=== PATIENT | female | born 1940 | race Caucasian/White ===

== ENCOUNTER 2019-08-18 09:05 | Outpatient (REF) | payer MEDICARE, OTHER, SELFPAY ==
[2019-08-18 12:27] LABS: Estmated Average Glucose 123; Hemoglobin A1C 5.9 % (4.0-6.0)
[2019-08-18 12:31] LABS: Chol HDL Ratio 3.53 mg/dL (0.0-4.40); Cholesterol 166 mg/dL (0-200); Glucose 101 mg/dL (65-115); HDL Cholesterol 47 mg/dL (60-100); LDL Cholesterol Calculated 102 mg/dL (50-129); LDL HDL Ratio 2.17 RATIO (0.00-3.22); Triglycerides 85 mg/dL (0-150)
== END 2019-08-18 09:06 | disposition home or self-care (01) ==
LOC: LAB 09:05
PROVIDERS: Family Provider Family Medicine; Visit Provider Dermatology
DX: Z01.89 Encounter for other specified special examinations (principal)
CPT/HCPCS: 80061; 82947; 83036

== ENCOUNTER 2021-01-24 08:25 | Outpatient (CLI) | payer MEDICARE, OTHER, SELFPAY ==
[2021-01-24] MEDS: iohexol 300 mg/mL 50 mL Btl PO (08:58)
--- NOTE | 2021-01-24 10:00 | CT_ITS ---
WS: [id number] CT scan of the abdomen and pelvis with Oral and IV contrast. Additional two-dimensional coronal and s agittal reconstruction was performed. 01/24/2021 Clinical Data: R16.0 - Hepatomegaly, not elsewhere classified Comparison: None. DLP: 1051.[address] scans at [facility] use at least one of these dose optimization techniques: automat ed exposure control; mA and/or kV adjustment per patient size (includes targeted exams where dose is matched to clinical indication); or iterative reconstruction. Findings: There is an 11 cm low-density lesion in the right lobe of the liver. The border is irregular and the interior of the lesion shows nodules and probably enhancing tissue. A posterior left lobe 1.1 cm low- density lesion which may or may not be associated with a larger central lesion is seen. There is dimi nished perfusion in the posterior aspect of the right lobe of liver. There is a small right pleural effusion. The lower lungs show no nodules or masses. The gallbladder is distended but there is no pericholecystic fluid. There is a 1.7 cm low-density les ion in the tail the pancreas which probably is a simple cyst. No pancreatic masses are seen. The adre nal glands are normal. The spleen shows enhancement but there is a low density 0.8 cm lesion in the b melva of the spleen. The kidneys show equal bilateral contrast excretion with a 1.1 cm right renal calcification. There ar e small bilateral renal cysts. No hydronephrosis or renal mass is noted. The abdominal aorta is normal in size with calcification in the wall. No appendicitis or diverticulitis is seen. Numerous diverticula in the descending colon and sigmoid c olon are present. There is a large amount of fecal material. Oral contrast is in the stomach and smal l bowel and there is no bowel dilatation. No ascites, adenopathy, obstruction or free air is seen. The bladder is unremarkable. The uterus shows numerous calcifications. No inguinal hernia is seen. The bones of the lower thorax, lumbar spine, pelvis, and hips show no metastatic lesions. 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 CT/CT abdomen pelvis w con* [id number] Impression: 1. Large lesion in right lobe of the liver with the appearance of an abscess. L ess likely possibilities are metastatic disease and primary liver cancer. 2. Diminished perfusion in the posterior aspect of right lobe of the liver. 3. Probable cysts in the tail of the pancreas and body of the spleen. 4. Right pleural effusion. 5. Right renal calculus.
[2021-01-24] MEDS: iohexol 300 mg/mL 100 mL Btl IV (10:09)
== END 2021-01-24 08:26 | disposition home or self-care (01) ==
PROVIDERS: PCP Family Medicine; Visit Provider Surgery
DX: R16.0 Hepatomegaly, not elsewhere classified (principal); N20.0 Calculus of kidney; J90 Pleural effusion, not elsewhere classified; K76.9 Liver disease, unspecified
CPT/HCPCS: 74177; Q9967

== ENCOUNTER 2021-01-27 09:47 | Outpatient (CLI) | payer MEDICARE, OTHER, SELFPAY ==
[2021-01-27 10:30] LABS: Basophils # 0.1 10^3/uL (0.0-0.1); Basophils % 0.8 %; Eosinophils # 0.1 10^3/uL (0.0-0.8); Hematocrit 38.3 % (37.0-47.0); Hemoglobin 12.1 g/dL (11.5-15.3); Lymphocytes % 9.3 %; Mean Corpuscular HGB Conc 31.6 g/dL (30.0-36.0); Mean Corpuscular Hemoglobin 27.9 pg (28.0-34.0); Mean Corpuscular Volume 88.5 fL (81-99); Mean Platelet Volume 9.3 fL (7.4-10.4); Monocytes % 8.6 %; Neutrophils # 8.83 10^3/uL (1.8-7.7); Neutrophils % 79.9 %; Nucleated Red Blood Cells % 0 %; Platelet Count 350 10^3/cmm (130-400); Red Blood Count 4.33 10^6/uL (4.1-5.3); Red Cell Distribution Width 15.1 % (12.1-15.1); White Blood Count 11.1 10^3/uL (4.0-10.0)
[2021-01-27 11:06] LABS: Alanine Aminotransferase 27 U/L (0-33); Albumin Level 3.4 g/dL (3.5-5.2); Alkaline Phosphatase 427 IU/L (35-105); Anion Gap 12.4 (5-19); Aspartate Amino Transferase 50 U/L (0-32); Blood Urea Nitrogen 18 mg/dL (8-23); Calcium 9.3 mg/dL (8.5-10.5); Carbon Dioxide 25 mmol/L (22-29); Chloride 101 mmol/L (98-107); Globulin 2.9 g/dL (1.3-4.6); Glucose 101 mg/dL (65-115); Lipase 62 U/L (13-60); Osmolality Calculated 280 mOsm/kg (285-295); Potassium 4.4 mmol/L (3.5-5.1); Sodium 134 mmol/L (136-145); Total Bilirubin 0.3 mg/dL (0.15-1.2); Total Protein 6.3 g/dL (6.6-8.7)
[2021-01-27 11:09] LABS: Blood Urea Nitrogen 18 mg/dL (8-23)
== END 2021-01-27 09:48 | disposition home or self-care (01) ==
PROVIDERS: PCP Family Medicine; Visit Provider Surgery
DX: R16.0 Hepatomegaly, not elsewhere classified (principal)
CPT/HCPCS: 36415; 80053; 83690; 84520; 85025

== ENCOUNTER 2021-02-07 21:57 | Emergency (ER) | payer MEDICARE, OTHER, SELFPAY ==
[2021-02-07 22:07] VITALS: BP 162/83; PULSE 99; RESP 18; TEMP 37.2; O2SAT 95; BMI 20.9
[2021-02-08] VITALS (17 sets, daily range): BP systolic 124–171; BP diastolic 59–79; PULSE 71–92; RESP 17–19; TEMP 28.3–36.8; O2SAT 94–97
[2021-02-08 03:34] LABS: Basophils # 0.1 10^3/uL (0.0-0.1); Basophils % 0.8 %; Hematocrit 39.3 % (37.0-47.0); Hemoglobin 12.6 g/dL (11.5-15.3); Lymphocytes # 0.7 10^3/uL (0.8-4.8); Lymphocytes % 5.4 %; Mean Corpuscular HGB Conc 32.1 g/dL (30.0-36.0); Mean Corpuscular Hemoglobin 28.4 pg (28.0-34.0); Mean Corpuscular Volume 88.7 fL (81-99); Mean Platelet Volume 9.6 fL (7.4-10.4); Monocytes # 0.8 10^3/uL (0.2-0.9); Monocytes % 6.7 %; Neutrophils # 10.45 10^3/uL (1.8-7.7); Neutrophils % 86.9 %; Nucleated Red Blood Cells % 0 %; Platelet Count 375 10^3/cmm (130-400); Red Blood Count 4.43 10^6/uL (4.1-5.3); Red Cell Distribution Width 15.3 % (12.1-15.1)
[2021-02-08 03:51] LABS: Alanine Aminotransferase 40 U/L (0-33); Albumin Level 3.4 g/dL (3.5-5.2); Alkaline Phosphatase 552 IU/L (35-105); Aspartate Amino Transferase 63 U/L (0-32); Blood Urea Nitrogen 19 mg/dL (8-23); Calcium 9.5 mg/dL (8.5-10.5); Carbon Dioxide 26 mmol/L (22-29); Chloride 97 mmol/L (98-107); Creatinine Clr Calc Pharmacy 53.2604; Globulin 3.2 g/dL (1.3-4.6); Glucose 112 mg/dL (65-115); Lipase 38 U/L (13-60); Osmolality Calculated 279 mOsm/kg (285-295); Sodium 133 mmol/L (136-145); Total Bilirubin 0.4 mg/dL (0.15-1.2); Total Protein 6.6 g/dL (6.6-8.7)
[2021-02-08 03:57] LABS: Anion Gap 14.8 (5-19); Potassium 4.8 mmol/L (3.5-5.1)
[2021-02-08] MEDS: ondansetron 2 mg/ML SDV 2 mL 4 MG IVP ×3 (05:58→18:03)
[2021-02-08] MEDS: fentaNYL 50 mcg/mL INJ 2mL IVP ×2 (05:58→10:45)
[2021-02-08] MEDS: sodium chloride 0.9% 1,000 ML 999 ML IV (05:59)
--- NOTE | 2021-02-08 06:22 | CTR_ITS ---
PROCEDURE INFORMATION: Exam: CT Abdomen And Pelvis With Contrast Exam date and time: 02/08/2021 6:22 AM Age: 80 years old Clinical indication: Nausea and vomiting; Abdominal pain; Generalized; Patient HX: Abd pain with n/v. Known hepatic mass/abscess. ; Additional info: Ruq pain TECHNIQUE: Imaging protocol: Computed tomography of the abdomen and pelvis with contrast. Total images: 223 Radiation optimization: All CT scans at this facility use at least one of these dose optimization techniques: automated exposure control; mA and/or kV adjustment per patient size (includes targeted exams where dose is matched to clinical indication); or iterative reconstruction. Contrast material: OMNI 300; Contrast volume: 75 ml; Contrast route: INTRAVENOUS (IV); COMPARISON: CT abdomen pelvis w con* [id number] 01/24/2021 10:01 AM RADIATION DOSE METRICS: Total DLP (mGy-cm): 1103.24 FINDINGS: Lungs: Compressive atelectasis of the right lung base. Pleural spaces: Moderate right pleural effusion. Liver: Large irregular area of low density with wall enhancement seen within the right lobe of the liver with smaller adjacent areas with similar appearance felt to represent a large hepatic abscess. Findings appear similar to the prior exam. 12 mm low-density area in the left lobe of the liver is unchanged. This is of indeterminate attenuation and shows no enhancement of the wall. This may represent a liver cyst or perhaps an additional site of hepatic abscess. This is unchanged from the prior exam. Gallbladder and bile ducts: Normal. No calcified stones. No ductal dilation. Pancreas: 17 mm pancreatic cyst in the posterior body. Atrophic changes of the pancreatic tail without pancreatic ductal dilatation detected. Spleen: Incidental splenic granuloma. Multiple low-density areas within the spleen which may represent splenic cysts. 12 mm area of low density within the spleen is indeterminate and may represent a splenic cyst or abscess. This is unchanged from the prior exam. Adrenal glands: Normal. No mass. Kidneys and ureters: 11 mm renal calcification with parenchymal thinning felt to represent sequela of prior inflammatory disease versus renal calculus unchanged. Small bilateral renal cysts unchanged. Stomach and bowel: Prominent fluid in small bowel suggestive of infectious/inflammatory enteritis or ileus. Colonic diverticulosis is present without diverticulitis. Appendix: No evidence of appendicitis. Intraperitoneal space: A small volume of intra-abdominal ascites is present. Vasculature: Severe atherosclerotic disease is evident. Lymph nodes: Unremarkable. No enlarged lymph nodes. Urinary bladder: Unremarkable as visualized. Reproductive: Unremarkable as visualized. Bones/joints: Multilevel degenerative disc disease is noted with vacuum phenomenon. Osteophytes are noted extending from the vertebrae. No acute spinal pathology is detected. Vertebral body with thickened, sparse vertical trabecula consistent with a vertebral body hemangioma. Soft tissues: Unremarkable. CT/CT abdomen pelvis w con* [id number] IMPRESSION: 1. Moderate right pleural effusion with compressive atelectasis. This has increased since the prior exam. 2. Large irregular area of low density with wall enhancement seen within the right lobe of the liver with smaller adjacent areas with similar appearance felt to represent a large hepatic abscess. Findings appear similar to the prior exam. 3. 12 mm low-density area in the left lobe of the liver is unchanged. This is of indeterminate attenuation and shows no enhancement of the wall. This may represent a liver cyst or perhaps an additional site of hepatic abscess. This is unchanged from the prior exam. 4. Multiple low-density areas within the spleen which may represent splenic cysts. 12 mm area of low density within the spleen is indeterminate and may represent a splenic cyst or abscess. This is unchanged from the prior exam. 5. 17 mm pancreatic cyst in the posterior body. Atrophic changes of the pancreatic tail without pancreatic ductal dilatation detected. Nonemergent MRI without and with IV contrast can be considered to further define. 6. Prominent fluid in small bowel suggestive of infectious/inflammatory enteritis or ileus. 7. A small volume of intra-abdominal ascites is present. Radiation Dose CTDIVOL = (mGy): DLP = 1103.24 (mGy-cm)
--- NOTE | 2021-02-08 06:55 | W.ED.ABDPA2 ---
Documented by User: Prudencio Altamirano DO 02/08/21 18:50 HPI - Abdominal Pain General: Chief Complaint: Abdominal Pain Stated Complaint: n,v,abd pain Time Seen by Provider: 02/08/21 04:30 History of Present Illness: HPI narrative: 80-year-old female with a history of right upper quadrant pain, she says since August. She saw her PCP recently and ultrasound of the gallbladder was ordered. She saw surgeon, who believed she had biliary colic, but got a CT scan to make sure 2 weeks ago. She continues to have pain, and significant amount of vomiting, with inability to keep fluids down for the past 24 hours or so. She presents for evaluation and treatment. MD elicited complaint: abdominal pain Pertinent past history: other Onset (ago): week(s) Pain Consistency: constant Location: RUQ Severity: moderate Quality: cramping and stabbing Radiation: RUQ Migration to: no migration Exacerbating factors: eating Relieving factors: nothing Associated Symptoms: Reports anorexia, diarrhea, nausea, poor appetite and vomiting; Denies fever(s), hematochezia and hematemesis Review of Systems Const: Denies: fever(s) Card: Denies: chest pain or palpitations Resp: Denies: dyspnea GI: Reports: nausea, vomiting and diarrhea; Denies: hematemesis or hematochezia PFS ED PFSH: Medical History (Updated 02/08/21 @ 18:50 by Prudencio Altamirano DO) Carotid stenosis Mitral and aortic incompetence SVT (supraventricular tachycardia) Surgical History (Updated 01/20/21 @ 15:19 by Liu Dumont MD) History of colonoscopy History of rotator cuff surgery (~2010) left Social History (Updated 12/15/19 @ 09:30 by Liberty Mittal RN) Smoking and tobacco status: never smoked Alcohol intake: never Physical Exam Chest: COMMONS NORMALS: normal inspection of the chest Resp: COMMON NORMALS: normal respiratory effort, No use of accessory muscles and clear to auscultation bilaterally AUSCULTATION: clear to auscultation bilaterally Cardio: COMMON NORMALS: regular rate and regular rhythm RATE: regular rate RHYTHM: regular rhythm GI: COMMON NORMALS: Normal to inspection, nondistended, normoactive bowel sounds present and Soft to palpation PALPATION: Yes Soft to palpation, Yes Tenderness to palpation present (GI) Details: RUQ and Yes Guarding due to palpation present (GI) Course Vital Signs: Vital signs: Vital Signs Temperature 98.2 F 02/08/21 16:00 Pulse Rate 86 02/08/21 18:45 Respiratory Rate 18 02/08/21 18:45 Blood Pressure 140/64 02/08/21 18:45 Pulse Oximetry 95 02/08/21 18:45 MDM - Abdominal Pain MDM Narrative: Medical decision making narrative: Review of CT 2 weeks ago, this lady has a fluid-filled mass in her liver. ReCT today to further delineate, and see if it has changed or grown. She may need transfer to IR for sampling, as we do not have that availability here. Her care is transferred to Dr. Herman at shift change. Patient leaving the ER now. She has a bed at [facility] in transfer. She is remained stable. She is received Zosyn, IV fluids, and pain medication here and there. Lab Data: Labs: Lab Results 02/08/21 02/08/21 02/08/21 Range/Units 03:25 03:25 09:03 WBC 12.0 H (4.0-10.0) 10^3/ uL RBC 4.43 (4.1-5.3) 10^6/u L Hgb 12.6 (11.5-15.3) g/dL Hct 39.3 (37.0-47.0) % MCV 88.7 (81-99) fL MCH 28.4 (28.0-34.0) pg MCHC 32.1 (30.0-36.0) g/dL RDW 15.3 H (12.1-15.1) % Plt Count 375 (130-400) 10^3/c mm MPV 9.6 (7.4-10.4) fL Neut % (Auto) 86.9 % Lymph % (Auto) 5.4 % [place] % (Auto) 6.7 % Eos % (Auto) 0.0 % Baso % (Auto) 0.8 % Neut # (Auto) 10.45 H (1.8-7.7) 10^3/u L Lymph # (Auto) 0.7 L (0.8-4.8) 10^3/u L [place] # (Auto) 0.8 (0.2-0.9) 10^3/u L Eos # (Auto) 0.0 (0.0-0.8) 10^3/u L Baso # (Auto) 0.1 (0.0-0.1) 10^3/u L Nucleated RBC % (a uto) 0 % Nucleated RBCs # 0.0 /100WBC Sodium 133 L (136-145) mmol/L Potassium 4.8 (3.5-5.1) mmol/L Chloride 97 L (98-107) mmol/L Carbon Dioxide 26 (22-29) mmol/L Anion Gap 14.8 (5-19) BUN 19 (8-23) mg/dL Creatinine 0.4 L (0.5-0.9) mg/dL GFR Calculation Not Reportable Glucose 112 (65-115) mg/dL Calculated Osmolal ity 279 L (285-295) mOsm/k g Calcium 9.5 (8.5-10.5) mg/dL Total Bilirubin 0.4 (0.15-1.2) mg/dL AST 63 H (0-32) U/L ALT 40 H (0-33) U/L Alkaline Phosphata se 552 H (35-105) IU/L Total Protein 6.6 (6.6-8.7) g/dL Albumin 3.4 L (3.5-5.2) g/dL Globulin 3.2 (1.3-4.6) g/dL Lipase 38 (13-60) U/L Urine Color Yellow (Yellow) Urine Appearance Clear (CLEAR) Urine pH 6.5 (5-7) Ur Specific Gravit y 1.010 (1.005-1.030) Urine Protein Trace (Negative) Urine Glucose (UA) Norm (Normal) Urine Ketones Negative (Negative) Urine Blood Neg (Negative) Urine Nitrate Negative (Negative) Urine Bilirubin Neg (Negative) Urine Urobilinogen 1 H (Negative) mg/dL Ur Leukocyte Estephanie ase Negative (Negative) Urine RBC None (0-2) /hpf Urine WBC None (0-5) /hpf Ur Squamous Epith Cells 0-4 H (0-5) /hpf Amorphous Sediment Not Reportable Urine Bacteria Trace (NONE) /hpf Hyaline Casts Rare /lpf Urine Mucus Trace /hpf Discharge Plan Discharge Patient Disposition: Xfer Short-Term Hosp Clinical Impression: Abscess of liver Condition: Stable Referrals: Lata Villanueva DO [Primary Care Provider] - Sign Out Sign Out Data: Patient Sign Out occurred on 02/08/21 at 11:46. Patient's care was discussed, and care was transferred from to John Herman DO. Coding Level of Care Code ED Refractory Tile Helper for Chg Fwd Exam Expanded Problem Focused Documented by User: John Herman DO 02/09/21 17:59 HPI - Abdominal Pain General: Chief Complaint: Abdominal Pain Stated Complaint: n,v,abd pain Time Seen by Provider: 02/08/21 04:30 PFSH ED PFSH: Medical History (Updated 02/08/21 @ 18:50 by Prudencio Altamirano DO) Carotid stenosis Mitral and aortic incompetence SVT (supraventricular tachycardia) Surgical History (Updated 01/20/21 @ 15:19 by Liu Dumont MD) History of colonoscopy History of rotator cuff surgery (~2010) left Social History (Updated 12/15/19 @ 09:30 by Liberty Mittal RN) Smoking and tobacco status: never smoked Alcohol intake: never Course Vital Signs: Vital signs: Vital Signs Temperature 98.2 F 02/08/21 16:00 Pulse Rate 86 02/08/21 18:45 Respiratory Rate 18 02/08/21 18:45 Blood Pressure 140/64 02/08/21 18:45 Pulse Oximetry 95 02/08/21 18:45 MDM - Abdominal Pain MDM Narrative: Medical decision making narrative: Care assumed a change of shift. Patient was monitored in the ER continued on her medications pain medications given as needed ultimately we are able to get a bed at [place] accepted on transfer the hepatology service discussed with the hepatology fellow. They accepted transfer via [facility] patient is doing well. Patient transferred because needed services are not available at our hospital including gastroenterology and interventional radiology for drainage of liver abscess. Lab Data: Labs: Lab Results 02/08/21 02/08/21 02/08/21 Range/Units 03:25 03:25 09:03 WBC 12.0 H (4.0-10.0) 10^3/ uL RBC 4.43 (4.1-5.3) 10^6/u L Hgb 12.6 (11.5-15.3) g/dL Hct 39.3 (37.0-47.0) % MCV 88.7 (81-99) fL MCH 28.4 (28.0-34.0) pg MCHC 32.1 (30.0-36.0) g/dL RDW 15.3 H (12.1-15.1) % Plt Count 375 (130-400) 10^3/c mm MPV 9.6 (7.4-10.4) fL Neut % (Auto) 86.9 % Lymph % (Auto) 5.4 % [place] % (Auto) 6.7 % Eos % (Auto) 0.0 % Baso % (Auto) 0.8 % Neut # (Auto) 10.45 H (1.8-7.7) 10^3/u L Lymph # (Auto) 0.7 L (0.8-4.8) 10^3/u L [place] # (Auto) 0.8 (0.2-0.9) 10^3/u L Eos # (Auto) 0.0 (0.0-0.8) 10^3/u L Baso # (Auto) 0.1 (0.0-0.1) 10^3/u L Nucleated RBC % (a uto) 0 % Nucleated RBCs # 0.0 /100WBC Sodium 133 L (136-145) mmol/L Potassium 4.8 (3.5-5.1) mmol/L Chloride 97 L (98-107) mmol/L Carbon Dioxide 26 (22-29) mmol/L Anion Gap 14.8 (5-19) BUN 19 (8-23) mg/dL Creatinine 0.4 L (0.5-0.9) mg/dL GFR Calculation Not Reportable Glucose 112 (65-115) mg/dL Calculated Osmolal ity 279 L (285-295) mOsm/k g Calcium 9.5 (8.5-10.5) mg/dL Total Bilirubin 0.4 (0.15-1.2) mg/dL AST 63 H (0-32) U/L ALT 40 H (0-33) U/L Alkaline Phosphata se 552 H (35-105) IU/L Total Protein 6.6 (6.6-8.7) g/dL Albumin 3.4 L (3.5-5.2) g/dL Globulin 3.2 (1.3-4.6) g/dL Lipase 38 (13-60) U/L Urine Color Yellow (Yellow) Urine Appearance Clear (CLEAR) Urine pH 6.5 (5-7) Ur Specific Gravit y 1.010 (1.005-1.030) Urine Protein Trace (Negative) Urine Glucose (UA) Norm (Normal) Urine Ketones Negative (Negative) Urine Blood Neg (Negative) Urine Nitrate Negative (Negative) Urine Bilirubin Neg (Negative) Urine Urobilinogen 1 H (Negative) mg/dL Ur Leukocyte Estephanie ase Negative (Negative) Urine RBC None (0-2) /hpf Urine WBC None (0-5) /hpf Ur Squamous Epith Cells 0-4 H (0-5) /hpf Amorphous Sediment Not Reportable Urine Bacteria Trace (NONE) /hpf Hyaline Casts Rare /lpf Urine Mucus Trace /hpf Discharge Plan Discharge Patient Disposition: Xfer Short-Term Hosp Clinical Impression: Abscess of liver Condition: Stable Referrals: Lata Villanueva DO [Primary Care Provider] - Sign Out Sign Out Data: Patient Sign Out occurred on 02/08/21 at 11:46. Patient's care was discussed, and care was transferred from to John Herman DO. Coding Level of Care Code ED Refractory Tile Helper for Chg Fwd Exam Expanded Problem Focused
[2021-02-08] MEDS: iohexol 300 mg/mL 100 mL Btl IV (06:56)
[2021-02-08 10:07] LABS: Glucose Urine UA Norm (Normal); Protein Urine Trace (Negative); Urine Appearance Clear (CLEAR); Urine Color Yellow (Yellow); pH Urine 6.5 (5-7)
[2021-02-08 10:08] LABS: Add Urine Microscopic? YES; Bilirubin Urine Neg (Negative); Blood Urine Neg (Negative); Ketones Urine Negative (Negative); Leukocyte Esterase Urine Negative (Negative); Nitrate Urine Negative (Negative); Urobilinogen Urine 1 mg/dL (Negative)
[2021-02-08 10:09] LABS: Add Urine Culture? No; Bacteria Urine TRACE /hpf; Hyaline Casts Urine RARE /lpf; Mucus Urine TRACE /hpf; Squamous Epithelial Cell Urine 0-4 /hpf (0-5)
[2021-02-08] MEDS: sodium chloride 0.9% 1,000 ML 100 ML IV (10:45)
[2021-02-08] MEDS: piperacillin-tazobactam 3.375 GM in sodium chloride 0.9% (plus) 50 ML IV (10:46)
[2021-02-08] MEDS: morphine 4 mg/mL SDV 1 mL IVP (18:02)
== END 2021-02-08 18:47 | disposition short-term general hospital (02) ==
PROVIDERS: Nurse Practitioner Family; Emergency Provider Family Medicine; PCP Family Medicine
DX: K75.0 Abscess of liver (principal)
CPT/HCPCS: 74177; 80053; 81001; 83690; 85025; 96361; 96365; 96375; 96376; 99285; J2270; J2405; J2543; J3010; J7030; Q9967

== ENCOUNTER 2021-03-18 13:01 | Outpatient (CLI) | payer MEDICARE, OTHER, SELFPAY ==
[2021-03-18 14:22] LABS: Anion Gap 13.1 (5-19); Blood Urea Nitrogen 17 mg/dL (8-23); Calcium 8.8 mg/dL (8.5-10.5); Carbon Dioxide 28 mmol/L (22-29); Chloride 100 mmol/L (98-107); Glucose 95 mg/dL (65-115); Magnesium 1.5 mg/dL (1.7-2.3); Osmolality Calculated 285 mOsm/kg (285-295); Potassium 4.1 mmol/L (3.5-5.1); Sodium 137 mmol/L (136-145)
== END 2021-03-18 13:02 | disposition home or self-care (01) ==
PROVIDERS: PCP Family Medicine; Visit Provider Internal Medicine Medical Oncology
DX: I47.1 Supraventricular tachycardia (principal); I08.0 Rheumatic disorders of both mitral and aortic valves; Z79.899 Other long term (current) drug therapy
CPT/HCPCS: 36591; 80048; 83735